=== PATIENT | male | born 1990 | race Caucasian/White ===

== ENCOUNTER 2018-09-18 17:18 | Emergency (ER) | payer SELFPAY ==
[~2018-09-18] VITALS: Ht 162.6 cm; Wt 63.5 kg
[2018-09-18 17:18] VITALS: BP_SYST 125
[2018-09-18] MEDS ORDERED: ACETAMINOPHEN 325 MG TABLET PO ONE (18:15)
[2018-09-18 19:40] VITALS: BP_SYST 120
== END 2018-09-18 19:40 ==
LOC: SED 17:18
DX: S62.91XA Unspecified fracture of right hand, initial encounter for closed fracture (principal); S93.401A Sprain of unspecified ligament of right ankle, initial encounter; S93.402A Sprain of unspecified ligament of left ankle, initial encounter; S93.601A Unspecified sprain of right foot, initial encounter; S93.602A Unspecified sprain of left foot, initial encounter; F90.9 Attention-deficit hyperactivity disorder, unspecified type; F41.9 Anxiety disorder, unspecified; F43.10 Post-traumatic stress disorder, unspecified; J45.909 Unspecified asthma, uncomplicated; Z86.73 Personal history of transient ischemic attack (TIA), and cerebral infarction without residual deficits; Y04.0XXA Assault by unarmed brawl or fight, initial encounter; Y93.89 Activity, other specified; Y92.89 Other specified places as the place of occurrence of the external cause; Y99.8 Other external cause status
CPT/HCPCS: 70450-TC; 72125-TC; 73620; 99284